=== PATIENT | female | born 2000 | race Two or more races ===

== ENCOUNTER 2025-05-26 12:34 | Outpatient (CLI) | payer OTHER | END 2025-05-26 12:43 | disposition home or self-care (01) | LOC: RAD 12:34 | PROVIDERS: ATTEND Orthopaedic Surgery | DX: S93.611A Sprain of tarsal ligament of right foot, initial encounter (principal); X58.XXXA Exposure to other specified factors, initial encounter; Y93.9 Activity, unspecified; Y92.9 Unspecified place or not applicable; Y99.9 Unspecified external cause status ==